=== PATIENT | female | born 2000 | race Hispanic/Latino ===

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

== ENCOUNTER 2019-07-23 15:48 | Emergency (ER) | payer OTHER ==
[2019-07-23 16:05] VITALS: O2SAT 99
--- NOTE | 2019-07-23 17:07 | RAD ---
EXAM: Cervical Spine, 2-3 Views CLINICAL INDICATION: Neck pain. COMPARISON: There is no previous study for comparison. FINDINGS: Three views of the cervical spine reveal no fracture or subluxation. The intervertebral disk spaces are preserved. The prevertebral soft tissues appear unremarkable. IMPRESSION: Negative cervical spine radiographs. Electronically signed by: Judson Esquivel MD 07/23/2019 5:06 PM CDT 07/23/2019 5:06 PM [employer]
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
--- NOTE | 2019-07-23 17:08 | RAD ---
EXAM: Knee,Right Complete CLINICAL INDICATION: Right knee pain COMPARISON: There is no previous study for comparison. FINDINGS: Three views of the right knee reveal no evidence of fracture. There is no knee joint effusion. No significant degenerative joint disease is identified. The osseous structures are intact and unremarkable. IMPRESSION: Negative right knee radiographs. Electronically signed by: Judson Esquivel MD 07/23/2019 5:07 PM CDT
--- NOTE | 2019-07-23 17:08 | RAD ---
EXAM: Shoulder,Right 2 or More Views CLINICAL INDICATION: Right shoulder pain COMPARISON: There is no previous study for comparison. FINDINGS: 2 views of the right shoulder demonstrate no fracture or dislocation. The AC joint is unremarkable. The visualized portion of the lung apex is clear. IMPRESSION: Negative right shoulder radiographs. Electronically signed by: Judson Esquivel MD 07/23/2019 5:07 PM CDT
--- NOTE | 2019-07-23 17:08 | RAD ---
EXAM: Chest,1 View CLINICAL INDICATION: Trauma, pain COMPARISON: 03/06/2018 FINDINGS: A single view of the chest was obtained. The heart size is normal. The pulmonary vascularity is unremarkable. The lungs are clear. There is no consolidation, infiltrate, pleural effusion, or pneumothorax. The visualized osseous structures are unremarkable. IMPRESSION: Normal chest radiograph. Electronically signed by: Judson Esquivel MD 07/23/2019 5:06 PM CDT
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
[2019-07-23] MEDS ORDERED: IBUPROFEN 200 MG TAB PO ONE (17:58)
[2019-07-23 19:23] VITALS: BP 125/71; TEMP 98.4
== END 2019-07-23 18:10 | disposition home or self-care (01) ==
LOC: ER 15:48
DX: S83.421A Sprain of lateral collateral ligament of right knee, initial encounter (principal); S40.011A Contusion of right shoulder, initial encounter; V49.59XA Passenger injured in collision with other motor vehicles in traffic accident, initial encounter; Y92.410 Unspecified street and highway as the place of occurrence of the external cause